=== PATIENT | female | born 2000 ===

== ENCOUNTER 2023-11-27 16:34 | Emergency (ER) | payer OTHER, SELFPAY ==
[2023-11-27 16:39] VITALS: BP 155/100
--- NOTE | 2023-11-27 17:47 | ED.GENMED ---
History of Present Illness
General
Chief Complaint: Abdominal Symptoms
Source: patient
Exam Limitations: none
Time Seen by Provider: 11/27/23 17:06
Nursing documentation reviewed up to this point in time: agreed with
Travel History
Have you had any contact with someone who has COVID-19?: No
Do you have any symptoms of coronavirus? Fever > 100 degrees, chills, cough, shortness of breath, sore throat, loss of taste or smell, muscle aches, or headache?: No
History of Present Illness
History of Present Illness:
23-year-old female with past medical history of hepatitis C, polysubstance use who presents to the emergency department for evaluation of multiple issues. Primarily she wishes to be evaluated and have labs drawn to check her liver functions�shjame
says that she is supposed to follow-up with a physician at [facility] in [place] for her chronic liver disease related to hepatitis C. She says she has been treated for hepatitis but had been going every 2 weeks to have follow-up lab work drawn. She
says that she has not had labs drawn in about 2 months and has been neglecting her health over that period of time. She says that she has been having some intermittent which she describes as 'liver seizures' where she gets pain in the upper abdomen
and sometimes in to the mid back. She says that the last episode was last week. No nausea or vomiting with this. She says that she also wishes to have a test etienne�leonidas says that her period was 2 weeks ago but she had some irregular
bleeding longer than typical afterwards. She does not have any vaginal bleeding or discharge at present but she wished to be checked for . Finally she says that she has been having struggles with substance abuse particular over the past
few months�leonidas says that she has been using cocaine (snorting primarily) and heavy marijuana use. She says that she wishes to speak to someone for help regarding her substance use issues.
Past History
Past History
ED Past Medical History: Other (Bipolar disorder, depression, alcoholic hepatitis)
ED Past Surgical History: None
Social History
Tobacco: Smoker
Alcohol: Former
Drug: Marijuana and Other (Former cocaine)
Personal: Single
Employment: Employed
Review of Systems
Review of Systems
All Other Systems: ROS reviewed and negative except as documented in HPI and ROS
Constitutional: Denies fever or chills
EENT: Denies sore throat or runny nose
Respiratory: Denies cough or trouble breathing
Cardiac: Denies chest pain or palpitations
ABD/GI: Reports abdominal pain (Occasional); Denies nausea, vomiting or diarrhea
: Denies flank pain or bleeding
Musculoskeletal: Denies neck pain or back pain
Neurological: Denies headache, weakness or numbness
Phy Exam
Physical Exam
Physical Exam:
General: Awake, alert, oriented x3; no acute distress
Head: Normocephalic, atraumatic
Eyes: Conjunctiva normal, EOMI, sclera anicteric
Throat: Airway intact, handling secretions
Neck: Trachea midline, supple without meningismus
Lungs: Clear to auscultation bilaterally, no wheezing, rales, rhonchi
Heart: Regular rate and rhythm, no murmurs, gallops, or rubs
Abd: Soft, non distended, nontender, no palpable hepatosplenomegaly
Neuro: Cranial nerves grossly intact, speech fluid
Skin: no rash
Extremities: No edema in extremities, warm and well-perfused
Scores
Heart Failure Risk
Heart Failure Risk Score: Not Applicable
Heart Score for Chest Pain Patients
STEMI patient?: Not applicable
Withdrawal Assessment of Alcohol
Withdrawal Assessment Completed?: Not applicable
Course
Orders/Labs/Results
Orders:
Orders
11/27/23 17:25
Test Result ONCE
US Abdomen Complete/Upper Urgent
Comment:
Reason For Exam: upper abd discomfort
11/27/23 17:38
Acetaminophen Urgent
Alcohol Urgent
Complete Blood Count/With Diff Urgent
Comprehensive Metabolic Panel Urgent
Drug Screen, Urine [Urine Drug Abuse Screen] Urgent
Date Specimen was Collected: 11/27/23
Time Specimen was Collected: 17:26
HCG, Serum Qualitative Screen Urgent
Lipase Urgent
Prothrombin Time Urgent
11/27/23 17:54
Crisis Consult Routine
Reason for Consult: SI
Abnormal Lab Results
11/27/23
17:38
RBC 5.70 H 10^6/uL
(4.20-5.40)
MCV 77.7 L fL
(81.0-99.0)
MCH 24.9 L pg
(27.0-31.0)
MCHC 32.1 L g/dL
(33.0-37.0)
RDW 15.5 H %
(11.5-14.5)
Calcium 10.6 H mg/dl
(8.4-10.2)
AST 125 H U/L
(14-36)
ALT 209 H U/L
(0-35)
Alkaline Phosphatase 177 H U/L
(38-126)
Acetaminophen < 10 L ug/ml
(10-30)
U Marijuana (THC) Screen Positive H
(Negative)
11/27/23 17:38
11/27/23 17:38
Vital Signs
Initial and Last Documented VS:
Initial Vital Signs
Temp Pulse Resp BP Pulse Ox
36.8 C 104 20 155/100 100
11/27/23 16:39 11/27/23 16:39 11/27/23 16:39 11/27/23 16:39 11/27/23 16:39
Last Documented Vital Signs
Temp Pulse Resp BP Pulse Ox
36.8 C 104 20 155/100 100
11/27/23 16:39 11/27/23 16:39 11/27/23 16:39 11/27/23 16:39 11/27/23 16:39
MDM/Problems Addressed
Differential Diagnosis Includes:
Abdominal pains: Cholelithiasis, hepatitis, pancreatitis, gastritis
Irregular vaginal bleeding: , fibroid, dysfunctional uterine bleeding
Substance abuse: Substance use disorder, anxiety disorder
MDM/Problems Addressed:
23-year-old female presents for evaluation of multiple issues�extensively presenting for evaluation of occasional abdominal pains requesting to be checked regarding her liver functions that she has been neglecting follow-up regarding chronic liver
disease she says related to hepatitis she says. Also requesting test that she had some irregular bleeding with her last period. Finally she is requesting help regarding substance use issues primarily with cocaine and marijuana�denies
alcohol use. Vital signs significant for hypertension and mild tachycardia here. Physical exam as above. Plan to place an IV check labs including CBC and a CMP, lipase, hCG. Will check UDS, alcohol level. Will check INR. Will send for an upper
abdominal ultrasound. Discussed case with [facility] regarding substance use. Although she did not report to me she did apparently mention during nursing screening that she had some suicidal ideation as well although no clear plan. Discussed with
crisis to do an assessment.
Labs reviewed CBC unremarkable, CMP shows marginally elevated transaminases but normal bilirubin, normal lipase. hCG was negative. Added Tylenol level given her report of suicidal ideation to the nurse and abnormal LFTs (although she denies any
kind of ingestion or suicide plan/attempt); this was negative. Alcohol level negative. We are awaiting results of abdominal ultrasound suspect transaminitis is related to her chronic liver disease and this can be followed as an outpatient.
[facility]/karen both spoke with patient at length ultimate plan is for inpatient dual diagnosis facility. Will discharge to crisis pending ultrasound results.
Ultrasound shows signs consistent with cirrhosis but no clear signs of gallstones or CBD dilation. She has no abdominal pain or tenderness present. I think she is cleared to follow-up outpatient with her normal specialist. Will discharge to
[facility] for inpatient placement for further care of her suicidal ideation and substance use issues.
Chronic conditions affecting care:
Hepatitis C, anxiety, polysubstance use
Acute Exacerbation and/or Progression of Chronic Illness:
Acutely hypertensive
*Pulse Oximetry
Patient hypoxic: no
*Critical Care Note
Total Time (30-74mins, 75-104mins- exclusive of procedures): Not Applicable
Data Reviewed
Source: patient
Patient Management
Social determinants of health affecting care: Substance abuse
Discussion with other providers: Other (Crisis, [facility])
ED Attending Note
-
Portions of this chart may have been created with voice recognition software.� Occasional wrong word or��sound alike� substitutions may have occurred due to the inherent limitations of voice recognition software.
Discharge Plan
Departure
Patient Disposition: [facility]
Date of Disposition: 11/27/23
Time of Disposition: 20:35
Patient with high blood pressure during this ER visit?: Yes
Discharge Problem:
Cirrhosis, Abnormal LFTs, Suicidal ideation, Substance use disorder
Instructions: Cirrhosis (DC), Suicide Prevention, Diet for Cirrhosis, Substance Use Disorder ED
Prescriptions:
No Action
spironolactone [Aldactone] 100 mg Tablet
200 mg PO DAILY
simethicone [Gas-X Extra Strength] 125 mg Tablet,Chewable
250 mg PO BID PRN (Reason: gas/bloating)
pantoprazole [Protonix] [address] For Susp In Packet
40 mg PO DAILY
lactulose 20 gram/30 mL Solution
20 g PO DAILY PRN (Reason: high ammonia)
furosemide [Lasix] 40 mg Tablet
40 mg PO DAILY
thiamine HCl (vitamin B1) 100 mg Tablet
100 mg PO DAILY
Referrals:
UNKNOWN - PT DOES,NOT KNOW [Family Provider] -
Activity Restrictions/Additional Instructions:
You should follow-up with your normal liver doctor to continue treatment for your liver disease. You are being discharged to our crisis center for placement to have treatment for your suicidal ideation and your substance use issues.
Thank you for visiting the Emergency Department at [facility].
1. Please schedule a follow up appointment as directed. Call first thing tomorrow morning to make an appointment.
2. If indicated, please take your medications as instructed and indicated on discharge paperwork.
3. If any of your symptoms do not improve, or persist, or become more severe within 6-12 hours, please return to the emergency department for further care.
4. Please return to the emergency department if you develop a headache, neck pain/stiffness, fever greater than 100.4F, chest pain, shortness of breath, persistent nausea, vomiting, slurred speech, difficulty walking, numbness/tingling, weakness,
signs of infection or any other symptoms that are worrisome to you.
Please call [phone] if you have any questions.
Interventions
Interventions:
*Risk Screen - Suicide Last Done: 11/27/23 17:53
*General Assessment Last Done: 11/27/23 16:39
*Neglect/Abuse Screening Last Done: 11/27/23 17:53
*ED COVID-19 Vaccine History Last Done: 11/27/23 16:39
SF-Ahyrvw-Iclhvvnyqn Assessment Last Done: 11/27/23 18:45
[2023-11-27 17:48] LABS: % Basophils 0.9 % (0-2); % Eosinophils 3.2 % (0-6); % Immature Granulocytes 0.2 % (0-0.5); % Lymphocytes 27.8 % (20.5-51.1); % Monocytes 8.4 % (1.7-9.3); % Neutrophils 59.5 % (42.2-75.2); Absolute Basophils 0.1 10^3/uL (0-0.2); Absolute Eosinophils 0.2 10^3/uL (0-0.7); Absolute Lymphocytes 1.8 10^3/uL (1.2-3.4); Absolute Monocytes 0.6 10^3/uL (0.1-0.6); Absolute Neutrophils 3.9 10^3/uL (1.4-6.5); Hematocrit 44.3 % (37.0-47.0); Hemoglobin 14.2 g/dL (12.0-16.0); Mean Corp Hgb Conc. 32.1 g/dL (33.0-37.0); Mean Corpuscular Hgb 24.9 pg (27.0-31.0); Mean Corpuscular Volume 77.7 fL (81.0-99.0); Mean Platelet Volume 10.3 fL (7.4-10.4); Nucleated Red Blood Cells % 0 %; Platelet Count 160 10^3/uL (130-400); Red Cell Dist. Width 15.5 % (11.5-14.5); White Blood Cell Count 6.5 10^3/uL (4.8-10.8)
[2023-11-27 17:56] LABS: HCG, Serum Qualitative Screen Negative
[2023-11-27 17:58] LABS: INR 1.03; PT 13.3 Sec (11.4-14.6)
[2023-11-27 18:00] LABS: ALT (SGPT) 209 U/L (0-35); AST (SGOT) 125 U/L (14-36); Acetaminophen < 10 ug/ml (10-30); Alkaline Phosphatase 177 U/L (38-126); Blood Urea Nitrogen 16 mg/dl (7-17); Calcium 10.6 mg/dl (8.4-10.2); Carbon Dioxide 28 mmol/L (22-30); Chloride 100 mmol/L (98-107); Glucose 84 mg/dl (70-99); Lipase 224 U/L (23-300); Potassium 3.7 mmol/L (3.5-5.1); Sodium 137 mmol/L (135-145); Total Bilirubin 1.3 mg/dl (0.2-1.3); Total Protein 8.1 g/dl (6.3-8.2); eGFR > 60.00
[2023-11-27 18:02] LABS: Alcohol None Detected
[2023-11-27 18:29] LABS: Amphetamines Negative (Negative); Barbiturates Negative (Negative); Benzodiazepines Negative (Negative); Buprenorphine Negative (Negative); Cocaine Negative (Negative); Methadone Negative (Negative); Methamphetamines Negative (Negative); Opiates Negative (Negative); Phencyclidine Negative (Negative)
[2023-11-27 18:30] LABS: Marijuana Positive (Negative); Tricyclic Antidepressants Negative (Negative)
== END 2023-11-27 20:43 ==
LOC: EMR 16:34
PROVIDERS: EMERGENCY PHYSICIAN Emergency Medicine
DX: K74.60 Unspecified cirrhosis of liver (principal); R79.89 Other specified abnormal findings of blood chemistry; R45.851 Suicidal ideations; F31.9 Bipolar disorder, unspecified; K70.10 Alcoholic hepatitis without ascites; F17.200 Nicotine dependence, unspecified, uncomplicated; F41.9 Anxiety disorder, unspecified; I10 Essential (primary) hypertension; Z86.19 Personal history of other infectious and parasitic diseases
CPT/HCPCS: 99284; 76700; 80053; 80143; 80306; 82077; 83690; 84703; 85025; 85610

== ENCOUNTER 2024-05-07 14:50 | Emergency (ER) | payer OTHER, SELFPAY ==
[2024-05-07 15:03] VITALS: BP 125/93
[2024-05-07 15:26] LABS: % Basophils 0.7 % (0-2); % Eosinophils 3.8 % (0-6); % Immature Granulocytes 0.3 % (0-0.5); % Lymphocytes 18.2 % (20.5-51.1); % Monocytes 8.1 % (1.7-9.3); % Neutrophils 68.9 % (42.2-75.2); Absolute Basophils 0.1 10^3/uL (0-0.2); Absolute Eosinophils 0.3 10^3/uL (0-0.7); Absolute Lymphocytes 1.4 10^3/uL (1.2-3.4); Absolute Monocytes 0.6 10^3/uL (0.1-0.6); Absolute Neutrophils 5.3 10^3/uL (1.4-6.5); Hematocrit 40.9 % (37.0-47.0); Hemoglobin 13.1 g/dL (12.0-16.0); Mean Corpuscular Hgb 24.5 pg (27.0-31.0); Mean Corpuscular Volume 76.6 fL (81.0-99.0); Mean Platelet Volume 10.2 fL (7.4-10.4); Nucleated Red Blood Cells % 0 %; Platelet Count 182 10^3/uL (130-400); Red Blood Cell Count 5.34 10^6/uL (4.20-5.40); Red Cell Dist. Width 14.7 % (11.5-14.5); White Blood Cell Count 7.7 10^3/uL (4.8-10.8)
[2024-05-07 15:36] LABS: HCG, Serum Qualitative Screen Negative
[2024-05-07 15:40] LABS: ALT (SGPT) 41 U/L (0-35); AST (SGOT) 43 U/L (14-36); Albumin 4.6 g/dl (3.5-5.0); Alkaline Phosphatase 130 U/L (38-126); Blood Urea Nitrogen 22 mg/dl (7-17); Calcium 9.9 mg/dl (8.4-10.2); Carbon Dioxide 25 mmol/L (22-30); Chloride 101 mmol/L (98-107); Glucose 92 mg/dl (70-99); Lipase 107 U/L (23-300); Potassium 4.1 mmol/L (3.5-5.1); Sodium 134 mmol/L (135-145); Total Bilirubin 1.4 mg/dl (0.2-1.3); Total Protein 7.3 g/dl (6.3-8.2); eGFR > 60.00
[2024-05-07 17:34] VITALS: BMI 29.6
[2024-05-07 17:39] VITALS: BP 123/92
[2024-05-07 18:00] VITALS: BP 127/95
[2024-05-07] MEDS: OMNIPAQUE 50 ML PO (18:14)
[2024-05-07] MEDS: NSS 1000 IV (18:22)
--- NOTE | 2024-05-07 18:57 | ED.GENMED ---
History of Present Illness
<Georgina Mandel NP - Last Filed: 05/13/24 23:12>
General
Chief Complaint: Abdominal Pain
Source: patient
Exam Limitations: none
Time Seen by Provider: 05/07/24 17:18
Nursing documentation reviewed up to this point in time: agreed with
History of Present Illness
History of Present Illness:
Patient to ED wtih complaint of diffuse abdominal pain, feeling of a 'pit' on left side of abdomen, pelvic pain. Symptoms started a few days ago but continues to worsen. Denies fever/chills n/v/d. Brought self to ED for eval. Discharged from
[facility] 1 mos ago.
Past History
<Georgina Mandel RN INFUSION - Last Filed: 05/13/24 23:12>
Past History
ED Past Medical History: Other (Bipolar disorder, depression, alcoholic hepatitis)
ED Past Surgical History: None
Social History
Tobacco: Vaping
Alcohol: Former (discharged from rehab 1 mos ago.)
Drug: Marijuana and Other (Former cocaine)
Personal: Single
Employment: Employed
Phy Exam
<Georgina Mandel RN INFUSION - Last Filed: 05/13/24 23:12>
General Physical Exam
General Presentation: mild distress
General age: appears stated age
General Skin: warm and dry
General Habitus: normal
General Mental: alert
Cardiovascular Exam
Cardiovascular Exam: regular rate/rhythm and no edema
Pulmonary Exam
Pulmonary Exam: lungs clear and no respiratory distress
Gastrointestinal Exam
Gastrointestinal Exam: normal bowel sounds, soft, no organomegaly, non distended and no cva tenderness
Palpation: generalized: Moderate tenderness
Musculoskeletal Exam
Musculoskeletal Exam: full ROM
Skin Exam
Skin Exam: normal color, warm/dry and no rash
Psychiatric Exam
Psychiatric Exam: normal mood/affect
Course
<Georgina Mandel NP - Last Filed: 05/13/24 23:12>
Orders/Labs/Results
Orders:
Orders
05/07/24 15:06
Test Result ONCE
05/07/24 15:13
Complete Blood Count/With Diff Urgent
Comprehensive Metabolic Panel Urgent
HCG, Serum Qualitative Screen Urgent
Lipase Urgent
05/07/24 17:56
CT Abd/pel W Iv And Oral Contr Urgent
Comment:
Reason For Exam: diffuse pain
Iohexol [Omnipaque] See Protocol PO NOW STA
Pelvis (Non Obstetric) US [US Pelvis Only (non-obstetric)] Urgent
Comment:
Reason For Exam: pelvic pain
05/07/24 17:57
0.9% Sodium Chloride 1000 ml [Nss] 1,000 ml IV BOLUS
05/07/24 18:24
Urinalysis Reflex To Culture Urgent
Date Specimen was Collected: 05/07/24
Time Specimen was Collected: 18:08
Urine Microscopic Reflex Cult Urgent
Ova & Parasites Giardia/Crypto AG [Giardia/Cryptosporidium Ag] Urgent
DARY Source: Feces/Stool
Specimen Description:
Date Specimen was Collected: 05/07/24
Time Specimen was Collected: 18:08
STOOL [C difficile Antigen & Toxins] Urgent
DARY Source: Feces/Stool
Specimen Description:
Date Specimen was Collected: 05/07/24
Time Specimen was Collected: 18:08
Stool Culture Urgent
DARY Source: Feces/Stool
Specimen Description:
Date Specimen was Collected: 05/07/24
Time Specimen was Collected: 18:08
Abnormal Lab Results
05/07/24 05/07/24
15:13 18:24
MCV 76.6 L fL
(81.0-99.0)
MCH 24.5 L pg
(27.0-31.0)
MCHC 32.0 L g/dL
(33.0-37.0)
RDW 14.7 H %
(11.5-14.5)
Lymphocytes % 18.2 L %
(20.5-51.1)
Sodium 134 L mmol/L
(135-145)
BUN 22 H mg/dl
(7-17)
Creatinine 1.1 H mg/dL
(0.6-1.0)
Total Bilirubin 1.4 H mg/dl
(0.2-1.3)
AST 43 H U/L
(14-36)
ALT 41 H U/L
(0-35)
Alkaline Phosphatase 130 H U/L
(38-126)
Leukocyte Esterase Rfl Trace A
(Negative)
05/07/24 15:13
05/07/24 15:13
Vital Signs
Initial and Last Documented VS:
Initial Vital Signs
Temp Pulse Resp BP Pulse Ox
99.3 F 91 18 125/93 99
05/07/24 15:03 05/07/24 15:03 05/07/24 15:03 05/07/24 15:03 05/07/24 15:03
Last Documented Vital Signs
Temp Pulse Resp BP Pulse Ox
99.3 F 79 16 119/79 100
05/07/24 15:03 05/07/24 21:53 05/07/24 21:53 05/07/24 21:53 05/07/24 21:53
[place];Bennett Christensen PA-C - Last Filed: 05/07/24 22:36>
Orders/Labs/Results
Orders:
Orders
05/07/24 15:06
Test Result ONCE
05/07/24 15:13
Complete Blood Count/With Diff Urgent
Comprehensive Metabolic Panel Urgent
HCG, Serum Qualitative Screen Urgent
Lipase Urgent
05/07/24 17:56
CT Abd/pel W Iv And Oral Contr Urgent
Comment:
Reason For Exam: diffuse pain
Iohexol [Omnipaque] See Protocol PO NOW STA
Pelvis (Non Obstetric) US [US Pelvis Only (non-obstetric)] Urgent
Comment:
Reason For Exam: pelvic pain
05/07/24 17:57
0.9% Sodium Chloride 1000 ml [Nss] 1,000 ml IV BOLUS
05/07/24 18:24
Urinalysis Reflex To Culture Urgent
Date Specimen was Collected: 05/07/24
Time Specimen was Collected: 18:08
Urine Microscopic Reflex Cult Urgent
Ova & Parasites Giardia/Crypto AG [Giardia/Cryptosporidium Ag] Urgent
DARY Source: Feces/Stool
Specimen Description:
Date Specimen was Collected: 05/07/24
Time Specimen was Collected: 18:08
STOOL [C difficile Antigen & Toxins] Urgent
DARY Source: Feces/Stool
Specimen Description:
Date Specimen was Collected: 05/07/24
Time Specimen was Collected: 18:08
Stool Culture Urgent
DARY Source: Feces/Stool
Specimen Description:
Date Specimen was Collected: 05/07/24
Time Specimen was Collected: 18:08
Abnormal Lab Results
05/07/24 05/07/24
15:13 18:24
MCV 76.6 L fL
(81.0-99.0)
MCH 24.5 L pg
(27.0-31.0)
MCHC 32.0 L g/dL
(33.0-37.0)
RDW 14.7 H %
(11.5-14.5)
Lymphocytes % 18.2 L %
(20.5-51.1)
Sodium 134 L mmol/L
(135-145)
BUN 22 H mg/dl
(7-17)
Creatinine 1.1 H mg/dL
(0.6-1.0)
Total Bilirubin 1.4 H mg/dl
(0.2-1.3)
AST 43 H U/L
(14-36)
ALT 41 H U/L
(0-35)
Alkaline Phosphatase 130 H U/L
(38-126)
Leukocyte Esterase Rfl Trace A
(Negative)
05/07/24 15:13
05/07/24 15:13
Vital Signs
Initial and Last Documented VS:
Initial Vital Signs
Temp Pulse Resp BP Pulse Ox
99.3 F 91 18 125/93 99
05/07/24 15:03 05/07/24 15:03 05/07/24 15:03 05/07/24 15:03 05/07/24 15:03
Last Documented Vital Signs
Temp Pulse Resp BP Pulse Ox
99.3 F 79 16 119/79 100
05/07/24 15:03 05/07/24 21:53 05/07/24 21:53 05/07/24 21:53 05/07/24 21:53
<Bennett Christensen PA-C - Last Filed: 05/07/24 22:36>
*Critical Care Note
Total Time (30-74mins, 75-104mins- exclusive of procedures): Not Applicable
<Bennett Christensen PA-C - Last Filed: 05/07/24 22:36>
Update Note
Update Note:
Assumed care of pt from Georgina Mandel NP at shift change, awaiting CT scan results. CT shows no acute pathology, pt d/c in stable condition
ED Attending Note
<Georgina Mandel NP - Last Filed: 05/13/24 23:12>
-
Portions of this chart may have been created with voice recognition software.� Occasional wrong word or��sound alike� substitutions may have occurred due to the inherent limitations of voice recognition software.
Discharge Plan
Departure
Patient Disposition: Home (Routine Discharge)
Date of Disposition: 05/07/24
Time of Disposition: 21:32
Patient with high blood pressure during this ER visit?: No
Condition: Good
Covid-19: Not Applicable
Discharge Problem:
Abdominal pain
Instructions: Abdominal Pain
Prescriptions:
No Action
spironolactone [Aldactone] 100 mg Tablet
200 mg PO DAILY
simethicone [Gas-X Extra Strength] 125 mg Tablet,Chewable
250 mg PO BID PRN (Reason: gas/bloating)
pantoprazole [Protonix] [address] For Susp In Packet
40 mg PO DAILY
lactulose 20 gram/30 mL Solution
20 g PO DAILY PRN (Reason: high ammonia)
furosemide [Lasix] 40 mg Tablet
40 mg PO DAILY
thiamine HCl (vitamin B1) 100 mg Tablet
100 mg PO DAILY
Referrals:
[facility] [Outside] - Call in 1-3 days for appt
NONE,* [Family Provider] -
Stand Alone Forms: Return to Work
Activity Restrictions/Additional Instructions:
Return to the emergency department immediately for any changes in/worsening of your symptoms.
Interventions
Interventions:
*Risk Screen - Suicide Last Done: 05/07/24 17:34
*General Assessment Last Done: 05/07/24 17:34
*Neglect/Abuse Screening Last Done: 05/07/24 17:34
ED- Fall Risk Assessment Last Done: 05/07/24 17:34
*ED COVID-19 Vaccine History Last Done: 05/07/24 17:34
*Nursing Disposition Last Done: 05/07/24 21:53
XR-Lwanha-Cvqzjxwsqs Assessment Last Done: 05/07/24 17:34
Discharge Date and Time
Discharge Date/Time: 05/07/24 21:45
Print Language: URUGUAYAN
[2024-05-07 19:15] LABS: Urine Albumin Negative (Neg - Trace); Urine Bilirubin Negative (Negative); Urine Character Clear (Clear); Urine Color Yellow; Urine Glucose Negative (Negative); Urine Ketone Negative (Negative); Urine Leukocyte Trace (Negative); Urine Nitrite Negative (Negative); Urine Occult Blood Negative (Negative); Urine Urobilinogen Negative (Neg - 1+)
[2024-05-07 19:41] LABS: Urine Red Blood Cell 0-2 /HPF (0-2)
[2024-05-07 21:53] VITALS: BP 119/79
== END 2024-05-07 21:45 | disposition home or self-care (01) ==
LOC: EMR 14:50
PROVIDERS: Emergency Medicine; Nurse Practitioner; EMERGENCY PHYSICIAN Student in an Organized Health Care Education/Training Program
DX: R10.84 Generalized abdominal pain (principal); F31.9 Bipolar disorder, unspecified; K70.10 Alcoholic hepatitis without ascites
CPT/HCPCS: 99284; 96360; 74177; 76856; 80053; 81003; 81015; 83690; 84703; 85025; 87045; 87046; 87077; 87324; 87328; 87329; 87427; 87449; Q9967